=== PATIENT | female | born 1985 | race Caucasian/White ===

== ENCOUNTER 2022-11-10 21:14 | Emergency (ER) | payer MEDICAID, SELFPAY ==
[2022-11-10 22:35] VITALS: BP 164/89; PULSE 92; RESP 18; TEMP 36.7; O2SAT 98; BMI 38.9
[2022-11-10 23:26] LABS: Influenza A PCR NEGATIVE (Negative); Influenza B PCR NEGATIVE (Negative); Resp Syncy Virus RNA Qual PCR NEGATIVE (Negative); SARS COV2 PCR INHOUSE NEGATIVE (Negative)
[2022-11-11 02:11] VITALS: BP 153/88; PULSE 98; RESP 19; TEMP 36.2; O2SAT 98
--- NOTE | 2022-11-11 02:39 | ED.URI ---
HPI - URI/Sore Throat General Chief Complaint: Upper Respiratory Symptoms Stated Complaint: Sinus infection Time Seen by Provider: 11/11/22 02:34 Source: patient Mode of arrival: ambulatory Limitations: no limitations History of Present Illness HPI Narrative: Patient comes to the emergency room complaining of severe sinus pressure. Patient states that 5 days ago she received the last dose of antibiotics for sinusitis. Patient states that initially she was doing better but once she stopped taking the antibiotics, all her symptoms return. Denies chest pain or shortness of breath. Denies ear pain or discharge. No throat pain. Related Data Previous Rx's Medication Instructions Recorded amoxicillin 500 mg-potassium 1 tab PO BID #20 tabs 11/11/22 clavulanate 125 mg tablet (Augmentin) fluticasone propionate 50 2 spray intranasal DAILY #16 grams 11/11/22 mcg/actuation nasal spray,suspension (Flonase Allergy Relief) Allergies Allergy/AdvReac Type Severity Reaction Status Date / Time fluconazole [FLUCONAZOLE] Allergy Unknown ANAPHYLAXIS Unverified 05/08/20 19:36 sulfamethoxazole Allergy Unknown ANAPHYLAXIS Unverified 05/08/20 19:36 [From BACTRIM] trimethoprim [From BACTRIM] Allergy Unknown ANAPHYLAXIS Unverified 05/08/20 19:36 Review of Systems Review of Systems: Constitutional : No Weight loss, No Fever, No Chills, No Night Sweats, No Fatigue, No Malaise ENT/Mouth : No Hearing loss, No Ear Pain, complaining of nasal congestion and worsening sinus pain No Hoarseness, No sore throat, No Rhinorrhea, No Swallowing Difficulty Eyes: No Eye Pain, No Swelling, No Redness, No Foreign Body, No Discharge, No Vision Changes Cardiovascular : No Chest Pain, No SOB, No Dyspnea on Exertion, No Orthopnea, No Edema, No Palpitations Respiratory : No Cough, No Sputum, No Wheezing, No Smoke Exposure, No Dyspnea Gastrointestinal : No Nausea, No Vomiting, No Diarrhea, No Constipation, No abdominal Pain, No Hematochezia, No Melena Genitourinary : no irregular bleeding, No Dysuria, No Urinary Frequency, No Hematuria, No Urinary Incontinence, No Urgency, No Flank Pain, No Urinary Flow Changes, No Hesitancy Musculoskeletal : No joint pain, No Myalgias, No Joint Swelling Skin : No Skin Lesions, No rash Neuro : No Weakness, No Numbness, No Paresthesias, No Loss of Consciousness, No Dizziness, No Headache Psych : No Anxiety/Panic, No Depression, No SI/HI/AH/VH, No Social Issues, Heme/Lymph: No Bruising, No Bleeding,No Lymphadenopathy Endocrine : No Polyuria, No Polydipsia, No Temperature Intolerance [facility], [facility]–1983 Social History Social History Advance Directives: No Physical Exam Vital Signs: Vital Signs: Last Vital Signs Temp 97.1 F 11/11/22 02:11 Pulse 98 11/11/22 02:11 Resp 19 11/11/22 02:11 BP 153/88 H 11/11/22 02:11 Pulse Ox 98 11/11/22 02:11 O2 Del Method 11/11/22 02:11 BMI result Body Mass Index 38.9 Const: Other: Appearance: Alert. Oriented X3. No acute distress. Eyes: Pupils equal, round and reactive to light. ENT: Pharynx normal. Pain to palpation over F moist and maxillary sinuses bilaterally Neck: Normal inspection. Neck supple. No lymph nodes noted. No crepitus CVS: Normal heart rate and rhythm. Pulses normal. Normal S1 and S2 Respiratory: No respiratory distress. Breath sounds normal. No Wheezing. No rales Abdomen: Soft and nontender. No rigidity. No distention. Skin: Skin warm and dry. Normal skin color. Normal skin turgor. Extremities: No lower extremity edema. No Lacerations. No Rash Neuro: Oriented X 3. No motor deficit. No sensory deficit. Moving all extremities. No slurred speech. CN 2 through 12 grossly intact Psych: calm, cooperative, normal affect Medical Decision Making Lab Data Labs: Lab Results 11/10/22 Range/Units 22:41 Influenza Type A (PCR) NEGATIVE (Negative) Influenza Type B (PCR) NEGATIVE (Negative) RSV RNA Qual (PCR) NEGATIVE (Negative) SARS-CoV-2 RNA (RT-PCR) NEGATIVE (Negative) Discharge Plan Discharge Clinical Impression: Sinusitis Patient Disposition: Home, Self-Care Instructions: Sinusitis (ED) Additional Instructions: Please follow-up with your primary care physician tomorrow. If you have any worsening or new symptoms, please return to the emergency room or call 911 Prescriptions: New fluticasone propionate [Flonase Allergy Relief] 50 mcg/actuation spray,suspension 2 spray intranasal DAILY Qty: 16 0RF Rx Instructions: administer into each nostril amoxicillin-pot clavulanate [Augmentin] 500-125 mg tablet 1 tab PO BID Qty: 20 0RF
== END 2022-11-11 03:08 | disposition home or self-care (01) ==
PROVIDERS: Emergency Medicine; Emergency Provider Emergency Medicine
DX: J32.9 Chronic sinusitis, unspecified (principal); Z20.822 Contact with and (suspected) exposure to COVID-19; Z20.828 Contact with and (suspected) exposure to other viral communicable diseases
CPT/HCPCS: 0241U; 99282; 99283; 99284

== ENCOUNTER 2025-04-13 20:26 | Emergency (ER) | payer MEDICAID, SELFPAY ==
--- NOTE | ~2025-04-13 | XR_ITS ---
CLINICAL HISTORY: injury 3 view right hand Comparison: None provided Findings: No definite acute or displaced fracture. No subluxation. On lateral view, suggestion of chronic appearing posttraumatic changes of the 1st metacarpal. No radiodense soft tissue foreign bodies. Suspected soft tissue injury involving 1st interspace region. Impression: 1. No definite acute or displaced fracture. 2. Additional findings as above. This document has been electronically signed by: Sarah Acharya MD on 04/13/2025 23:40:58
--- NOTE | 2025-04-13 20:31 | ED_ITS ---
HPI - General Adult General Chief complaint: Skin/Abscess/Foreign Body Stated complaint: wound between thumb and pointer finger lft hand Time Seen by Provider: 04/13/25 21:39 Source: patient Mode of arrival: ambulatory Limitations: no limitations History of Present Illness ED Provider: Dr. Prather HPI narrative: 39-year-old female presenting to ER after sustaining laceration to her left hand . Patient was trying to cut a avocado with a serrated spatula unfortunately cut her web between her 1st digit and 2nd digit. Is complaining of some swelling in her hand and some pain around the area. Some numbness on the proximal aspect of the thumb. Related Data Previous Rx's ?Medication ?Instructions ?Recorded amoxicillin 500 mg-potassium 1 tab PO BID #20 tabs clavulanate 125 mg tablet (Augmentin) fluticasone propionate 50 2 spray intranasal DAILY #16 grams 11/11/22 mcg/actuation nasal spray,suspension (Flonase Allergy Relief) acetaminophen 325 mg tablet (Pain 650 mg (2 x 325 mg) PO Q6H PRN 04/13/25 Relief (acetaminophen)) pain #30 tabs Allergies Allergy/AdvReac Type Severity Reaction Status Date / Time fluconazole (FLUCONAZOLE) Allergy Unknown ANAPHYLAXIS Verified 04/13/25 20:33 sulfamethoxazole (From Allergy Unknown ANAPHYLAXIS Verified 04/13/25 20:33 BACTRIM) trimethoprim (From BACTRIM) Allergy Unknown ANAPHYLAXIS Verified 04/13/25 20:33 Review of Systems Review of Systems: Pertinent review of systems as mentioned in HPI. All other system otherwise negative. [facility] [place] Past Medical History [facility] [place] Narrative: Medical history as mentioned in HPI Social History Social History Smoked in Last 30 Days: No Use of substances other than those prescribed or required for medical reasons: No Advance Directives: No Advance Directives Information Provided: No Physical Exam ED Exam Exam: General: Pleasant, no distress, interacting appropriately Head: Normacephalic, atraumatic Extremities: 3 cm laceration over the web of her left 1st digit and 2nd digit. Appears to be deep to subcutaneous tissue no signs of foreign object. Neurological: Awake and alert, no facial droop noted Skin: Warm and dry Psychiatric: Appropriate mood and thoughts Vital Signs: Vital Signs - 24 hr 04/14/25 00:06 Temperature 97.8 F Pulse Rate 89 Respiratory Rate 20 Blood Pressure 165/95 H Pulse Oximetry 98 Oxygen Delivery Method Room Air BMI result Body Mass Index 38.1 Course Course Course Narrative: This is a Rapid Medical Examination (RME) performed by Reddy Paredes PA-C in triage. Full HPI, ROS, assessment and treatment plan per primary provider in the Main ED. Hx: 39 yo F here for eval of laceration inbetween 1st/2nd digits sustained [employer] while attempting to cut an avocado with a serrated spatula. tdap UTD. PE/vitals: 1.5 cm linear lac noted to webbed space between L 1st/2nd digits. bleeding controlled. bandage applied. Plan: lac repair Medications Administered Discontinued Medications Generic Name Dose Route Start Last Admin Trade Name Freq PRN Reason Stop Dose Admin Acetaminophen 975 mg 04/13/25 22:27 04/13/25 22:36 Acetaminophen 325 Mg Tablet PO 04/13/25 22:28 975 mg ONCE ONE Administration Lidocaine HCl 5 ml 04/13/25 22:27 04/13/25 22:38 Lidocaine Hcl 1 % 20 Ml Vial INFILTRATI 04/13/25 22:28 5 ml ONCE ONE Administration Procedures Laceration Laceration 1: Site: hand Side (If applicable): left Size (cm): 3 Description: linear Depth: simple, single layer Local Anesthetic: lidocaine 1% Amount of anesthesia used (mL): 2 Pre-repair: irrigated extensively and deep structures intact Skin layer closed with: nylon Size (cm): 4-0 Number of sutures: 4 Technique: simple, interrupted Medical Decision Making Medical Decision Making MDM Narrative: 39-year-old female presented hospital today for evaluation of left hand laceration. X-ray was obtained no signs of foreign object no signs of fracture. I placed a total of 4 simple interrupted stitches to patient laceration. We will good wound approximation. Patient states she is up-to-date on her tetanus shot. Complain of some numbness on the proximal thumb. However her sensation distally is intact. Patient does have good range of motion of her left thumb. No concern of tendon involvement. Instruct patient to have the sutures removed in 10-14 days. She agrees and understands this plan all questions are addressed. Differential Diagnosis Differential Diagnoses: The differential diagnosis associated with the presentat ion includes Tendon injury, laceration, foreign object in hand, fracture Independent Interpretation I performed an independent interpretation of an: Plain X-Ray Discharge Plan Discharge Clinical Impression: Hand laceration Qualifiers: Encounter type: initial encounter Foreign body presence: without foreign body Laterality: left Qualified Code(s): S61.412A - Laceration without foreign body of left hand, initial encounter Patient Disposition: Home, Self-Care Additional Instructions: Remove stitches in 10-14 days. Watch for signs of infection Prescriptions: New acetaminophen [Pain Relief (acetaminophen)] 325 mg tablet 650 mg PO Q6H PRN (Reason: pain) Qty: 30 0RF No Action fluticasone propionate [Flonase Allergy Relief] 50 mcg/actuation spray,suspension 2 spray intranasal DAILY Qty: 16 0RF Rx Instructions: administer into each nostril amoxicillin-pot clavulanate [Augmentin] 500-125 mg tablet 1 tab PO BID Qty: 20 0RF Stand Alone Forms: Work/School Release Interventions: ED Discharge Assessment Last Done: 04/14/25 00:06 Discharge Date/Time: 04/14/25 00:06 Print Language: Estonian
[2025-04-13 20:32] VITALS: BP 165/95; PULSE 89; RESP 20; TEMP 36.6; O2SAT 98; BMI 38.1
--- OUTSIDE RECORDS SUMMARY | 2025-04-13 21:00 | XMS_ITS ---
Author Name [facility] ([place], [place]) Organization Unknown Encounters Encounter Type Encounter Reason Primary Diagnosis Location Date Ambulatory [facility] 03/28/2025 Care Team Organization Name Specialty Phone Email Start Date End [facility] 03/31
[2025-04-13] MEDS: Lidocaine HCl 1 % 20 ML VIAL 5 ML INFILTRATI (22:38)
--- NOTE | 2025-04-13 23:50 | PC.NURSE ---
reviewed discharge instructions with pt. pt verbalized understanding, no sign of distress upon discharge, positive cms and pulses to right hand
[2025-04-14 00:06] VITALS: BP 165/95; PULSE 89; RESP 20; TEMP 36.6; O2SAT 98
== END 2025-04-14 00:06 | disposition home or self-care (01) ==
PROVIDERS: Emergency Provider Student in an Organized Health Care Education/Training Program
DX: S61.412A Laceration without foreign body of left hand, initial encounter (principal); W26.0XXA Contact with knife, initial encounter; Y93.89 Activity, other specified; Y92.89 Other specified places as the place of occurrence of the external cause; Y99.8 Other external cause status
CPT/HCPCS: 12002; 73120; 99284; J2003

== ENCOUNTER → 2025-04-13 22:27 | Outpatient (BNV) | payer MEDICAID, SELFPAY | PROVIDERS: Emergency Provider Student in an Organized Health Care Education/Training Program; Visit Provider Radiology Diagnostic Radiology | DX: S61.412A Laceration without foreign body of left hand, initial encounter (principal) | CPT/HCPCS: 73120 ==